=== PATIENT | male | born 1970 | race Caucasian/White ===

== ENCOUNTER 2021-08-26 20:22 | Emergency (ER) | payer OTHER ==
[~2021-08-26] VITALS: Ht 182.9 cm; Wt 149.2 kg
[2021-08-26 20:31] VITALS: BP_SYST 156
--- NOTE | 2021-08-26 20:31 | NUR ---
Patient to ER bed 2 to gown for evaluation. Side rails up. Assumed care.
--- NOTE | 2021-08-26 20:46 | NUR ---
Pt. bib from urgent care with c/o pain to right calf and positive Homans sign, pt stated started having pain yesterday and thought it was from being on his feet to much, at 4am pt experienced severe muscle cramp and then today cont. to have pain so went to urgent care and was sent here. when pt. flexes leg pain 06/29
--- NOTE | 2021-08-26 20:59 | NUR ---
CORWIN Baxter at bedside examining patient.
[2021-08-26] MEDS ORDERED: KETOROLAC TROMETHAMINE 15 MG VIAL IM ONE (21:15)
--- NOTE | 2021-08-26 22:07 | NUR ---
Notified Dr Curran pt. had no pain relief from Toradol
[2021-08-26] MEDS ORDERED: methocarbamoL 500 MG TABLET PO ONE (22:15)
--- NOTE | 2021-08-26 22:30 | NUR ---
Patient transported to radiology via WHEELCHAIR, accompanied by US TECH.
[2021-08-27 00:03] VITALS: BP_SYST 111
--- NOTE | 2021-08-27 00:07 | NUR ---
Patient given written and verbal discharge instructions and verbalizes understanding. ER MD discussed with patient the results and treatment provided. Patient in stable condition. ID arm band removed. Patient educated on pain management and to follow up with PMD. Pain Scale 4/10. Opportunity for questions provided and answered. Medication side effect fact sheet provided.
== END 2021-08-27 00:07 | disposition home or self-care (01) ==
LOC: SED 20:22
DX: M79.604 Pain in right leg (principal)
CPT/HCPCS: 93971; 96372; 99284; J1885

== ENCOUNTER 2022-10-18 23:14 | Emergency (ER) | payer OTHER ==
[~2022-10-18] VITALS: Ht 182.9 cm; Wt 171.0 kg
[2022-10-18 23:25] VITALS: BP_SYST 120
[2022-10-19 00:22] LABS: BASOPHILS % (AUTO) 0.6 % (0.0-2.0); EOSINOPHILS # (AUTO) 0.2 K/uL (0.0-0.4); EOSINOPHILS % (AUTO) 2.7 % (0.0-4.0); HEMOGLOBIN 14.6 g/dL (14.0-18.0); LYMPHOCYTES # (AUTO) 1.7 K/uL (1.0-5.5); LYMPHOCYTES % (AUTO) 27.1 % (20.5-51.5); MEAN CORPUSCULAR HEMOGLOBIN 28 pg (27-31); MEAN CORPUSCULAR HGB CONC 33 % (32-36); MEAN CORPUSCULAR VOLUME 86 fL (79.0-98.0); MONOCYTES # (AUTO) 0.8 K/uL (0.0-1.0); MONOCYTES % (AUTO) 12.8 % (1.7-9.3); NEUTROPHILS # (AUTO) 3.5 K/uL (1.8-7.7); NEUTROPHILS % (AUTO) 56.8 % (40.0-70.0); PLATELET COUNT (AUTO) 200 K/uL (130-430); RED BLOOD CELL COUNT(AUTO) 5.15 MIL/uL (4.2-6.2); RED CELL DISTRIBUTION WIDTH 14.1 % (9.0-15.0); WHITE BLOOD COUNT (AUTO) 6.2 K/uL (4.8-10.8)
[2022-10-19 00:37] LABS: ANION GAP 9 (5-15); CALCIUM 8.6 mg/dL (8.4-11.0); CHLORIDE 106 mmol/L (98-107); CREATININE 0.94 mg/dL (0.55-1.30); GLUCOSE 113 mg/dL (70-99); UREA NITROGEN, BLOOD 16 mg/dL (8-21)
[2022-10-19 00:46] LABS: ALANINE AMINOTRANSFERASE 61 U/L (12-78); ALBUMIN 3.5 g/dL (3.4-4.8); ASPARTATE AMINOTRANSFERASE 64 U/L (10-37); LIPASE 192 U/L (73-393); TOTAL BILIRUBIN 0.3 mg/dL (0.0-1.0)
[2022-10-19 00:47] LABS: GFR AFRICAN AMERICAN 109 mL/min (>90)
[2022-10-19 01:25] VITALS: BP_SYST 121
== END 2022-10-19 01:25 | disposition home or self-care (01) ==
LOC: SED 23:14
DX: R10.13 Epigastric pain (principal); R07.81 Pleurodynia; Z79.899 Other long term (current) drug therapy
CPT/HCPCS: 36415; 71046-TC; 80053; 83690; 84484; 85025; 93005; 99285